=== PATIENT | male | born 1990 | race Caucasian/White ===

== ENCOUNTER 2021-03-01 06:52 | Day surgery (SDC) | payer SELFPAY ==
[~2021-03-01] VITALS: Ht 162.6 cm; Wt 122.9 kg
[~2021-03-01 06:52] MED LIST: HYDROCODONE/APAP; MOTRIN800 MG PO; POTASSIUM CH2 MEQ/ML PO; PREDNISONE20 MG PO; TYLENOL 500MG500 MG PO; ULTRAM 50MG TAB50 MG PO; VICODIN 5/5001 UDTAB PO
[2021-03-01 07:25] VITALS: BP 146/107; PULSE 111; TEMP 98.8
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
[2021-03-01 09:39] VITALS: BP 124/82; PULSE 80; TEMP 98
--- NOTE | 2021-03-01 09:39 | NUR ---
The patient arrived back to [place] [facility] from the operating room at this time. The patient appears alert and oriented and denies any pain or nausea at this time. The patient's post operative vital signs were started at this time. The patient agrees to try some orange juice and a muffin at this time. The patient's grandma, Roxane, is at his bedside at this time. Will continue to monitor the patient.
[2021-03-01 09:55] VITALS: BP 120/86; PULSE 84
--- NOTE | 2021-03-01 09:55 | NUR ---
Alexandra, with social work is at the patient's bedside to speak with him regarding the sucidical thoughts he is experiencing. Will continue to monitor the patient.
[2021-03-01 10:10] VITALS: BP 133/85; PULSE 72
--- NOTE | 2021-03-01 10:10 | NUR ---
The patient is still talking with social work instructor. He has finished his food and drink and appeared to tolerate the activity well. Vital signs appear stable. Sidney remains at his bedside.
[2021-03-01 10:25] VITALS: BP 134/93; PULSE 67
--- NOTE | 2021-03-01 10:25 | NUR ---
The patient appears to be resting comfortably on the cart while speaking with social media intern. Call light is within reach. Will continue to monitor the patient.
[2021-03-01 10:55] VITALS: BP 127/89; PULSE 65
--- NOTE | 2021-03-01 10:55 | NUR ---
The patient's IV to left hand was removed and a pressure dressing was applied to the site. Discharge instructions were reviewed with the patient and his grandma at this time. They both verbalized understanding and have no questions for the nurse at this time. The nurse instructed the patient to get dressed and notify the staff when he is ready to be escorted out.
--- NOTE | 2021-03-01 11:05 | NUR ---
The patient was escorted out via wheelchair to a private vehicle by ZENAIDA Eden. The patient's belongings and discharge paperwork were sent with him. The patient's grandma is present to drive him home.
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
== END 2021-03-01 11:05 | disposition home or self-care (01) ==
LOC: SDCO 06:52
DX: K64.0 First degree hemorrhoids (principal); K62.5 Hemorrhage of anus and rectum; F41.9 Anxiety disorder, unspecified
CPT/HCPCS: J0690; J1100; J2250; J2405; J2704; J3010; J7120

== ENCOUNTER 2022-04-29 06:38 | Day surgery (SDC) | payer SELFPAY ==
[~2022-04-29] VITALS: Ht 165.1 cm; Wt 60.5 kg
[2022-04-29] VITALS (8 sets, daily range): BP systolic 98–119; BP diastolic 57–81; PULSE 54–66; TEMP 97.7–97.8
--- NOTE | 2022-04-29 08:46 | NUR ---
PATIENT RETURNED TO ROOM 3 FOLLOWING PROCEDURE. PATIENT DROWSY, BUT AROUSES TO NAME. BREATHING REGULAR AND UNLABORED, 6L VIA FACEMASK. HEART TONES REGULAR. HANDOFF COMPLETED IN ROOM. SEE CHART FOR VITAL SIGNS. PATIENT GRANDMOTHER PRESENT IN ROOM.
--- NOTE | 2022-04-29 08:55 | NUR ---
PATIENT ALERT AND ORIENTED, DENIES PAIN AND NAUSEA. PATIENT HAD A MUFFIN AND ORANGE JUICE, BOTH TOLERATED WELL.
--- NOTE | 2022-04-29 10:00 | NUR ---
PATIENT ALERT AND ORIENTED, DENIES PAIN AND NAUSEA. AMBULATED WITH STEADY GAIT TO THE RESTROOM AND VOIDED WITHOUT DIFFICULTY. DISCHARGE TEACHING COMPLETED WITH PRINTED EDUCATION SENT HOME WITH PATIENT. PATIENT AND GRANDMOTHER VERBALIZED UNDERSTANDING OF TEACHING. IV REMOVED. PATIENT DISCHARGED HOME WITH GRANDMOTHER TRANSPORT.
== END 2022-04-29 10:10 | disposition home or self-care (01) ==
LOC: SDCO 06:38
DX: K64.0 First degree hemorrhoids (principal); F17.210 Nicotine dependence, cigarettes, uncomplicated
CPT/HCPCS: J1100; J1885; J2704; J3010; J7120